=== PATIENT | female | born 1960 | race African-American/Black ===

== ENCOUNTER 2023-01-21 12:52 | Inpatient (IN) | payer MEDICAID ==
[~2023-01-21] VITALS: Ht 165.1 cm; Wt 74.8 kg
[2023-01-21 12:55] VITALS: O2SAT 100
[2023-01-21 15:17] LABS: BASOPHILS % 0.7 % (0.0-2.0); DIFFERENTIAL COMMENT 0; EOSINOPHILS % 0.8 % (0.0-5.0); HEMATOCRIT. 36.6 % (36.0-48.0); HEMOGLOBIN. 11.6 g/dL (12.0-16.0); LYMPHOCYTES % 38.7 % (20.0-50.0); MEAN CORPUSCULAR HEMOGLOBIN 22.6 pg (28.0-32.0); MEAN CORPUSCULAR HGB CONC 31.6 g/dL (31.0-37.0); MEAN CORPUSCULAR VOLUME 71.7 fL (81.0-99.0); MONOCYTES % 9.8 % (2.0-8.0); PLATELET 313 x1000/uL (130-400); RED BLOOD CELL COUNT 5.11 mill/uL (4.2-5.4); RED CELL DISTRIBUTION WIDTH 14.7 % (11.6-14.6); WHITE BLOOD COUNT 4.2 x1000/uL (4.5-11.0)
[2023-01-21 15:29] LABS: CHLORIDE 102 mEq/L (98-107); INDEX HEMOLYSI 1 (1-3); INDEX ICTERIC 1 (1-4); INDEX LIPEMIC 1 (1-3); POTASSIUM 3.3 mEq/L (3.5-5.1); SODIUM 135 mEq/L (136-145)
[2023-01-21 15:39] LABS: ALANINE AMINOTRANSFERASE 19 IU/L (13-61); ASPARTATE AMINOTRANSFERASE 12 IU/L (15-37); BILIRUBIN TOTAL 0.7 mg/dL (0.1-1.0); CARBON DIOXIDE 27 mEq/L (21-32); CREATININE 0.7 mg/dL (0.6-1.3); GLUCOSE 133 mg/dL (70-105); PROTEIN TOTAL 7.9 g/dL (6.0-8.3); UREA NITROGEN BLOOD 6 mg/dL (7-21)
[2023-01-21] MEDS ORDERED: TRAMADOL 50MG TABLET PO ONE (18:15)
[2023-01-21] MEDS ORDERED: TRAMADOL 50MG TABLET PO NR (18:15)
[2023-01-21] MEDS ORDERED: GADOTERATE MEGLUMINE 5 MMOL/10 ML VIAL IV ONE (22:22)
[2023-01-21] MEDS ORDERED: HYDROMORPHONE HCL/PF 2MG/ML CPJ IV NR (23:15)
[2023-01-22 03:36] VITALS: BP 147/59; PULSE 66; RESP 20; TEMP 96.5
[2023-01-22] MEDS ORDERED: OMEP20CA14 MT (04:14)
[2023-01-22] MEDS ORDERED: METF-415 MT (04:14)
[2023-01-22] MEDS ORDERED: FERR-71 MT (04:18)
[2023-01-22] MEDS ORDERED: CEPH500C2 MT (04:18)
[2023-01-22] MEDS ORDERED: VIT1TABL62 PO (04:18)
[2023-01-22] MEDS ORDERED: LOSA1TAB37 MT (04:18)
[2023-01-22] MEDS ORDERED: TRAM50TA3 MT (04:18)
[2023-01-22] MEDS ORDERED: DOCU-150 MT (04:18)
[2023-01-22] MEDS ORDERED: ATOR40TA70 MT (04:18)
[2023-01-22] MEDS ORDERED: IBUP-2030 MT (04:18)
[2023-01-22] MEDS ORDERED: POTASSIUM CHLORIDE INJ 40 MEQ in DEXT 5% WATER 500 ML IV ONE (05:45)
[2023-01-22] MEDS ORDERED: OMEPRAZOLE 20MG CAPSULE EXTENDED RELEASE PO PRN (05:45)
[2023-01-22] MEDS: HYDROCODONE/ACETAMINOPHEN 10/325MG TABLET PO PRN (06:11)
[2023-01-22] MEDS ORDERED: NALOXONE HCL 0.4MG/ML VIAL IV PRN (06:15)
[2023-01-22] MEDS ORDERED: KCL 20MEQ/100ML X 2 FOR TOTAL KCL 40MEQ/200ML IV SCH (06:30)
[2023-01-22 08:00] VITALS: BP 149/63; PULSE 57; RESP 16; TEMP 97.9
[2023-01-22] MEDS ORDERED: ENOXAPARIN 40MG/0.4ML SYR SUBCUT SCH (09:00)
[2023-01-22] MEDS: LOSARTAN 100 MG TABLET PO SCH (09:00)
[2023-01-22] MEDS ORDERED: THROMBIN (BOVINE) 5000 UNITS/VIAL TOP ONE ×2 (09:39→11:01)
[2023-01-22] MEDS ORDERED: LIDOCAINE HCL 1%/EPI 1:200,000 30 ML VIAL ONE (09:40)
[2023-01-22 09:59] LABS: BASOPHILS % 0.9 % (0.0-2.0); DIFFERENTIAL COMMENT 0; EOSINOPHILS % 1.9 % (0.0-5.0); HEMATOCRIT. 35.1 % (36.0-48.0); HEMOGLOBIN. 11.2 g/dL (12.0-16.0); LYMPHOCYTES % 43.2 % (20.0-50.0); MEAN CORPUSCULAR HEMOGLOBIN 22.9 pg (28.0-32.0); MEAN CORPUSCULAR VOLUME 71.5 fL (81.0-99.0); MEAN PLATELET VOLUME 9.4 fl (7.4-10.4); MONOCYTES % 7.7 % (2.0-8.0); NEUTROPHILS % 46.3 % (40.0-76.0); PLATELET 302 x1000/uL (130-400); RED BLOOD CELL COUNT 4.91 mill/uL (4.2-5.4); RED CELL DISTRIBUTION WIDTH 14.9 % (11.6-14.6); WHITE BLOOD COUNT 4.7 x1000/uL (4.5-11.0)
[2023-01-22 10:24] LABS: PROTHROMBIN TIME 10.6 sec (9.6-11.0)
[2023-01-22 10:32] LABS: CHLORIDE 98 mEq/L (98-107); INDEX HEMOLYSI 1 (1-3); INDEX ICTERIC 1 (1-4); INDEX LIPEMIC 1 (1-3); POTASSIUM 3.4 mEq/L (3.5-5.1); SODIUM 135 mEq/L (136-145)
[2023-01-22 10:39] LABS: ALANINE AMINOTRANSFERASE 18 IU/L (13-61); ALBUMIN 3.8 g/dL (3.4-5.0); ASPARTATE AMINOTRANSFERASE 16 IU/L (15-37); BILIRUBIN TOTAL 0.6 mg/dL (0.1-1.0); CALCIUM 10.5 mg/dL (8.5-10.1); CARBON DIOXIDE 28 mEq/L (21-32); CHOLESTEROL 221 mg/dL (<200); CREATININE 0.7 mg/dL (0.6-1.3); GLUCOSE 151 mg/dL (70-105); HDL CHOLESTEROL 95 mg/dL (40-59); LDL CHOLESTEROL 122 mg/dL (5-100); PROTEIN TOTAL 7.7 g/dL (6.0-8.3); TRIGLYCERIDE 77 mg/dL (0-150); UREA NITROGEN BLOOD 8 mg/dL (7-21)
[2023-01-22] MEDS: DEXT 5%/LACTATED RINGERS 1,000 ML IV SCH (10:45)
[2023-01-22] MEDS ORDERED: HYDRALAZINE 20MG/ML VIAL IV PRN (10:45)
[2023-01-22] MEDS ORDERED: GENTAMICIN SULF 40MG/ML 2ML VIAL ONE (11:02)
[2023-01-22] MEDS ORDERED: ROCURONIUM BROMIDE 10MG/ML VIAL 5ML IV ONE (11:29)
[2023-01-22] MEDS ORDERED: PROPOFOL 200MG/20ML VIAL IV ONE (11:29)
[2023-01-22] MEDS ORDERED: NEOSTIGMINE METHYLSULFATE 1MG/ML 10 ML VIAL ONE (12:41)
[2023-01-22] MEDS ORDERED: GLYCOPYRROLATE 0.2 MG/ML 2ML VIAL ONE ×2 (12:42)
[2023-01-22] MEDS ORDERED: HYDROMORPHONE HCL/PF 2MG/ML CPJ ONE (12:47)
[2023-01-22] MEDS ORDERED: DEXAMETHASONE 4MG/ML 1ML VIAL ONE (12:47)
[2023-01-22] MEDS ORDERED: VANCOMYCIN 1500MG in DEXTROSE 5% WATER 250ML IV NR (13:00)
[2023-01-22] MEDS ORDERED: HYDROMORPHONE HCL/PF 2MG/ML CPJ IV NR (14:00)
[2023-01-22] MEDS ORDERED: CEFAZOLIN SODIUM 1000MG/VIAL IV SCH (14:00)
[2023-01-22] MEDS: PIPERACILLIN/TAZOBACTAM 3.375 G in DEXTROSE 5% WATER 50 ML IV SCH ×2 (14:00→22:50)
[2023-01-22] MEDS: MORPHINE SULFATE 4 MG/ML CPJ (NOT FOR IM USE) IV PRN ×2 (15:42→21:35)
[2023-01-22 20:00] VITALS: BP 142/72; PULSE 80; RESP 19; TEMP 99.3
[2023-01-22] MEDS: ATORVASTATIN CALCIUM 40MG TABLET PO SCH (20:29)
[2023-01-23] VITALS: BP 131/50; PULSE 68; RESP 18; TEMP 99.1
[2023-01-23] MEDS: VANCOMYCIN 750MG PREMIX 150 ML IV SCH ×2 (00:27→13:18)
[2023-01-23] MEDS: HYDROCODONE/ACETAMINOPHEN 10/325MG TABLET PO PRN ×3 (00:39→14:44)
[2023-01-23] MEDS: DEXT 5%/LACTATED RINGERS 1,000 ML IV SCH ×2 (02:45→10:45)
[2023-01-23 04:00] VITALS: BP 155/55; PULSE 69; RESP 19; TEMP 98.1
[2023-01-23] MEDS ORDERED: DEXTROSE 50% WATER 50ML SYRINGE IV PRN (05:15)
[2023-01-23] MEDS: MORPHINE SULFATE 4 MG/ML CPJ (NOT FOR IM USE) IV PRN ×2 (05:38→20:27)
[2023-01-23] MEDS: PIPERACILLIN/TAZOBACTAM 3.375 G in DEXTROSE 5% WATER 50 ML IV SCH ×3 (06:31→22:22)
[2023-01-23] MEDS: BLOOD SUGAR DIAGNOSTIC STRIP TEST SCH ×4 (06:33→21:00)
[2023-01-23 07:47] VITALS: BP 125/51; PULSE 62; RESP 18; TEMP 99.1
[2023-01-23] MEDS: INSULIN LISPRO 100 UNITS/ML SUBCUT SCH ×4 (07:50→20:47)
[2023-01-23] MEDS: LOSARTAN 100 MG TABLET PO SCH (08:32)
[2023-01-23 12:00] VITALS: BP 133/50; PULSE 63; RESP 18; TEMP 99.2
[2023-01-23] MEDS ORDERED: POTASSIUM CHLORIDE 20MEQ TABLET SR PO NR (13:15)
[2023-01-23 16:00] VITALS: BP 146/59; PULSE 71; RESP 18; TEMP 97.2
[2023-01-23 20:00] VITALS: BP 160/74; PULSE 68; RESP 20; TEMP 102.2
[2023-01-23] MEDS: ATORVASTATIN CALCIUM 40MG TABLET PO SCH (20:26)
[2023-01-24] VITALS: BP 146/47; PULSE 60; RESP 16; TEMP 101.3
[2023-01-24] MEDS: VANCOMYCIN 750MG PREMIX 150 ML IV SCH ×2 (00:41→21:13)
[2023-01-24] MEDS: HYDROCODONE/ACETAMINOPHEN 10/325MG TABLET PO PRN ×5 (00:43→20:44)
[2023-01-24] MEDS: DEXT 5%/LACTATED RINGERS 1,000 ML IV SCH ×3 (02:58→18:45)
[2023-01-24] MEDS: PIPERACILLIN/TAZOBACTAM 3.375 G in DEXTROSE 5% WATER 50 ML IV SCH ×3 (06:36→22:00)
[2023-01-24 07:07] LABS: BASOPHILS % 0.8 % (0.0-2.0); EOSINOPHILS % 1.3 % (0.0-5.0); HEMATOCRIT. 31.6 % (36.0-48.0); LYMPHOCYTES % 25.7 % (20.0-50.0); MEAN CORPUSCULAR HEMOGLOBIN 22.8 pg (28.0-32.0); MEAN CORPUSCULAR HGB CONC 31.6 g/dL (31.0-37.0); MONOCYTES % 8.3 % (2.0-8.0); NEUTROPHILS % 63.9 % (40.0-76.0); RED BLOOD CELL COUNT 4.39 mill/uL (4.2-5.4); RED CELL DISTRIBUTION WIDTH 14.8 % (11.6-14.6); WHITE BLOOD COUNT 6.6 x1000/uL (4.5-11.0)
[2023-01-24] MEDS: BLOOD SUGAR DIAGNOSTIC STRIP TEST SCH ×4 (07:20→20:42)
[2023-01-24 07:21] LABS: DIFFERENTIAL COMMENT 1
[2023-01-24 07:30] LABS: CHLORIDE 107 mEq/L (98-107); INDEX HEMOLYSI 1 (1-3); INDEX ICTERIC 1 (1-4); INDEX LIPEMIC 1 (1-3); POTASSIUM 3.6 mEq/L (3.5-5.1); SODIUM 139 mEq/L (136-145)
[2023-01-24 07:40] LABS: ALANINE AMINOTRANSFERASE 15 IU/L (13-61); ALBUMIN 2.8 g/dL (3.4-5.0); ASPARTATE AMINOTRANSFERASE 16 IU/L (15-37); BILIRUBIN TOTAL 0.6 mg/dL (0.1-1.0); CALCIUM 9.2 mg/dL (8.5-10.1); CARBON DIOXIDE 30 mEq/L (21-32); CREATININE 0.7 mg/dL (0.6-1.3); GLUCOSE 156 mg/dL (70-105); IRON 12 ug/dL (50-175); PROTEIN TOTAL 6.2 g/dL (6.0-8.3); TOTAL IRON BINDING CAPACITY 262 ug/dL (250-450); UREA NITROGEN BLOOD 5 mg/dL (7-21)
[2023-01-24] MEDS: INSULIN LISPRO 100 UNITS/ML SUBCUT SCH ×4 (07:50→21:11)
[2023-01-24 08:00] VITALS: BP 130/58; PULSE 58; RESP 19; TEMP 97.6
[2023-01-24 08:10] LABS: PLATELET 224 x1000/uL (130-400)
[2023-01-24] MEDS: LOSARTAN 100 MG TABLET PO SCH (09:00)
[2023-01-24 12:00] VITALS: BP 168/81; PULSE 70; RESP 18; TEMP 97.9
[2023-01-24] MEDS ORDERED: LIDOCAINE HCL 1% 10 MG/ML 10ML VIAL ONE (14:21)
[2023-01-24] MEDS ORDERED: SODIUM BICARBONATE 4% (2.4MEQ) 5ML VIAL IV ONE (14:21)
[2023-01-24] MEDS: AMLODIPINE 10MG TABLET PO SCH (15:49)
[2023-01-24 16:00] VITALS: BP 170/68; PULSE 75; RESP 19; TEMP 98.1
[2023-01-24 20:00] VITALS: BP 151/73; PULSE 71; RESP 18; TEMP 97.9
[2023-01-24] MEDS ORDERED: ESCI5TAB16 PO (20:08)
[2023-01-24] MEDS: ATORVASTATIN CALCIUM 40MG TABLET PO SCH (20:43)
[2023-01-25] MEDS: HYDROCODONE/ACETAMINOPHEN 10/325MG TABLET PO PRN ×4 (00:59→21:25)
[2023-01-25] MEDS: DEXT 5%/LACTATED RINGERS 1,000 ML IV SCH ×2 (02:45→19:00)
[2023-01-25 04:00] VITALS: BP 139/51; PULSE 65; RESP 20; TEMP 97.9
[2023-01-25] MEDS: PIPERACILLIN/TAZOBACTAM 3.375 G in DEXTROSE 5% WATER 50 ML IV SCH ×3 (05:51→22:57)
[2023-01-25] MEDS: BLOOD SUGAR DIAGNOSTIC STRIP TEST SCH ×4 (07:04→21:25)
[2023-01-25] MEDS: INSULIN LISPRO 100 UNITS/ML SUBCUT SCH ×5 (07:31→21:00)
[2023-01-25 08:00] VITALS: BP 137/60; PULSE 72; RESP 19; TEMP 97.5
[2023-01-25] MEDS: LOSARTAN 100 MG TABLET PO SCH (08:20)
[2023-01-25] MEDS: AMLODIPINE 10MG TABLET PO SCH (08:20)
[2023-01-25] MEDS: VANCOMYCIN 750MG PREMIX 150 ML IV SCH ×2 (09:00→20:30)
[2023-01-25 12:00] VITALS: BP 135/58; PULSE 69; RESP 19; TEMP 98
[2023-01-25] MEDS: DOCUSATE SODIUM 250MG CAPSULE PO SCH (14:00)
[2023-01-25 16:00] VITALS: BP 152/60; PULSE 74; RESP 19; TEMP 98
[2023-01-25 20:00] VITALS: BP 134/57; PULSE 69; RESP 20; TEMP 98.4
[2023-01-25] MEDS: ATORVASTATIN CALCIUM 40MG TABLET PO SCH (20:20)
[2023-01-26] VITALS: BP 138/63; PULSE 66; RESP 20; TEMP 97.7
[2023-01-26] MEDS: DEXT 5%/LACTATED RINGERS 1,000 ML IV SCH (01:47)
[2023-01-26 04:00] VITALS: BP 134/84; PULSE 62; RESP 18; TEMP 98.1
[2023-01-26] MEDS: HYDROCODONE/ACETAMINOPHEN 10/325MG TABLET PO PRN ×3 (04:07→17:57)
[2023-01-26] MEDS: VANCOMYCIN 750MG PREMIX 150 ML IV SCH (06:07)
[2023-01-26] MEDS: BLOOD SUGAR DIAGNOSTIC STRIP TEST SCH ×2 (06:29→12:20)
[2023-01-26] MEDS: INSULIN LISPRO 100 UNITS/ML SUBCUT SCH ×2 (07:36→12:50)
[2023-01-26 08:00] VITALS: BP 112/84; PULSE 72; RESP 20; TEMP 97.1
[2023-01-26] MEDS: PIPERACILLIN/TAZOBACTAM 3.375 G in DEXTROSE 5% WATER 50 ML IV SCH ×2 (08:40→14:00)
[2023-01-26] MEDS: LOSARTAN 100 MG TABLET PO SCH (09:00)
[2023-01-26] MEDS: DOCUSATE SODIUM 250MG CAPSULE PO SCH (09:00)
[2023-01-26] MEDS: AMLODIPINE 10MG TABLET PO SCH (09:00)
[2023-01-26 12:00] VITALS: BP 121/79; PULSE 75; RESP 21; TEMP 98.8
== END 2023-01-26 18:07 | DRG 23 ==
LOC: ER 14:41 → EDBEDREQTM 01-22 01:11 → EDBEDREQ 01-22 01:11 → 6EST 01-22 02:10
PROVIDERS: ADMIT Internal Medicine; ATTEND Internal Medicine
PROC: 00NY0ZZ Release Lumbar Spinal Cord, Open Approach (ICD-10-PCS; principal; 2023-01-22)
PROC: 009U0ZZ Drainage of Spinal Canal, Open Approach (ICD-10-PCS; 2023-01-22)
PROC: 02HV33Z Insertion of Infusion Device into Superior Vena Cava, Percutaneous Approach (ICD-10-PCS; 2023-01-24)
PROC: B548ZZA Ultrasonography of Superior Vena Cava, Guidance (ICD-10-PCS; 2023-01-24)
DX: G06.1 Intraspinal abscess and granuloma (principal); G82.20 Paraplegia, unspecified; G95.20 Unspecified cord compression; E11.9 Type 2 diabetes mellitus without complications; D50.9 Iron deficiency anemia, unspecified; E78.00 Pure hypercholesterolemia, unspecified; M48.061 Spinal stenosis, lumbar region without neurogenic claudication; E87.6 Hypokalemia; I10 Essential (primary) hypertension; E78.5 Hyperlipidemia, unspecified
CPT/HCPCS: 36415; 36573; 72100; 72131; 72158; 76000; 80053; 80061; 80202; 82728; 82962; 83036; 83540; 83550; 83605; 84145; 85025; 86850; 86900; 87070; 87075; 88305; 93005; 95863; 95925; 95926; 95928; 95929; 97116; 97162; 97530; 99285; A9577; C1725; C1893; J1100; J1170; J1580; J1815; J2270; J2543; J2704; J2710; J3370; J3480; J3490; J7030; J7060; J7121